=== PATIENT | female | born 1995 | race American Indian/Alaskan Native ===

== ENCOUNTER 2024-06-25 19:11 | Emergency (ER) | payer OTHER ==
[~2024-06-25] VITALS: Ht 162.6 cm; Wt 133.4 kg
[~2024-06-25 19:11] MED LIST: VENLAFAXINE HCL75 MG PO
[2024-06-25] MEDS ORDERED: TOPIRAMATE15 MG (19:23)
[2024-06-25] MEDS ORDERED: AMITRIPTYLINE H25 MG PO (19:24)
[2024-06-25] MEDS ORDERED: MAXITROL EYE DRO5 ML OPTH (20:23)
[2024-06-25] MEDS ORDERED: NEOMYCIN/POLYMYXIN/DEXAMETH OPTH SUSPENSION BOTTLE OD ONE (20:30)
[2024-06-25 20:45] VITALS: BP 133/84
== END 2024-06-25 20:45 | disposition home or self-care (01) ==
LOC: ED 19:11
DX: T65.891A Toxic effect of other specified substances, accidental (unintentional), initial encounter (principal); H10.211 Acute toxic conjunctivitis, right eye; Z88.8 Allergy status to other drugs, medicaments and biological substances; Z79.899 Other long term (current) drug therapy
CPT/HCPCS: 99283

== ENCOUNTER 2025-03-02 09:01 | Day surgery (SDC) | payer BC, OTHER ==
[~2025-03-02] VITALS: Ht 160 cm; Wt 124.0 kg
--- NOTE | 2025-03-02 08:43 | NUR ---
0840- ANCEF CHANGED TO 3MG PER PHARMACY PROTOCOL FOR WEIGHT OVER 120KG.
[~2025-03-02 09:01] MED LIST changes: +AMITRIPTYLINE H25 MG PO; +CEFAZOLIN SODIUM 3 GM in SODIUM CHLORIDE 0.9% 100 ML IV SCH; +IBLOOD GLUCOSE TEST STRIP 1 EA TEST VI PRN; +LACTATED RINGER'S 1,000 ML IV SCH; +LIDOCAINE HCL 1% 5 ML SDV INJ ONE; +MAXITROL EYE DRO5 ML OPTH; +RIZATRIPTAN5 M1 PO; +TOPIRAMATE15 MG
[2025-03-02 09:38] VITALS: BP 134/78
[2025-03-02] MEDS ORDERED: HYDROCODONE/ACETA 5/325 TAB PO PRN (11:15)
[2025-03-02] MEDS ORDERED: DEXAMETHASONE SOD PHOS 4 MG/ML VIAL ONE (11:25)
[2025-03-02] MEDS ORDERED: MIDAZOLAM HCL 2 MG/2 ML VIAL ONE (11:25)
[2025-03-02] MEDS ORDERED: KETOROLAC TROMETHAMINE 30 MG/ML VIAL ONE (11:25)
[2025-03-02] MEDS ORDERED: LIDOCAINE HCL 0.5% 50 ML SDV ONE (11:25)
[2025-03-02] MEDS ORDERED: HYDROCODON-ACE1 EA10 PO (11:51)
--- NOTE | 2025-03-02 12:08 | NUR ---
03/02/25 Betty BarcenasTaylor 1151: PT ARRIVED TO PACU VIA STRETCHER. PT ON 6L VIA MASK. PT SWINGING ARMS AND BEING COMBATIVE. ABLE TO TALK TO PATIENT AND RE-ORIENT HER AT THIS TIME. PT NO LONGER COMBATIVE JUST TEARFUL. 1152: PT TITRATED TO RA AT THIS TIME. 1200: PT REMAINS ON RA. ICE PLACED ON LEFT WRIST AND ELEVATED ON PILLOW AT THIS TIME. DRESSING REMAINS C/D/I.
[2025-03-02 12:16] VITALS: BP 121/73
--- NOTE | 2025-03-03 09:25 | OR ---
[facility] [address], [place] [address] Signed DATE OF OPERATION: 03/02/2025 SURGEON: Juan R Grimm MD PREOPERATIVE DIAGNOSIS: Carpal tunnel syndrome, left. POSTOPERATIVE DIAGNOSIS: Carpal tunnel syndrome, left. PROCEDURE PERFORMED: Left carpal tunnel release. LOCATE TECHNICIAN: None. ANESTHESIA: Juli block. TOURNIQUET TIME: 15 minutes. BRIEF HISTORY: Mony is a 29-year-old female with pain and numbness in her hand. Nerve conduction studies were consistent with significant carpal tunnel. Risks and benefits of operative treatment were discussed with her and she elected to proceed. DESCRIPTION OF PROCEDURE: Once consent was obtained, she was taken to the operating room. After adequate anesthesia, she was placed on operating room table. All downside pressure points were padded. The arm was prepped and draped in a standard sterile fashion after a Juli block was established. The carpal tunnel was approached through a standard 1.5 cm incision in the distal wrist crease. This was carried through skin and subcutaneous tissue. Palmaris longus was identified and retracted. There appeared to be a cutaneous nerve running along side of it. This also was retracted and protected. The transverse carpal ligament was then dissected free of overlying soft tissue under loupe magnification. It was released approximately a centimeter and distally to the distal extent again under direct loupe magnification. This was palpated using a Piercy and found to be completely released. The wound was copiously irrigated with normal saline, closed with 3-0 nylon and injected with 8 mL of 0.25% plain Marcaine. The wound was then dressed with Electronically Signed By: JUAN R GRIMM MD 03/03/25 0925 PATIENT NAME: MONY MERCADO OPERATIVE REPORT DATE OF : [birth year] REPORT #: [id number] PHYSICIAN: JUAN R GRIMM MD PCP: WOLFGANG SANDHU MD REPORT IS CONFIDENTIAL AND NOT TO BE RELEASED WITHOUT AUTHORIZATION [facility] [address] [facility] [facility] [place] [place] [address] Signed bacitracin, Adaptic, 4 x 8s, and gauze. She tolerated the procedure well. All sponge, needle, and instrument counts were correct. Juan R Grimm MD BA/MODL /[id number] Copies: ~ Electronically Signed By: JUAN R GRIMM MD 03/03/25 0925 PATIENT NAME: MONY MERCADO OPERATIVE REPORT DATE OF : [birth year] REPORT #: [id number] PHYSICIAN: JUAN R GRIMM MD PCP: WOLFGANG SANDHU MD REPORT IS CONFIDENTIAL AND NOT TO BE RELEASED WITHOUT AUTHORIZATION
== END 2025-03-02 12:25 | disposition home or self-care (01) ==
LOC: DS 09:01
PROVIDERS: ATTEND Specialist
PROC: 01N50ZZ Release Median Nerve, Open Approach (ICD-10-PCS; principal; 2025-03-02 12:00)
DX: G56.03 Carpal tunnel syndrome, bilateral upper limbs (principal); Z88.8 Allergy status to other drugs, medicaments and biological substances; Z87.891 Personal history of nicotine dependence
CPT/HCPCS: 01810; 84703; J0688; J1100; J1885; J2250; J2405; J2704; J7121